=== PATIENT | male | born 1950 | race Caucasian/White ===

== ENCOUNTER 2024-05-08 03:46 | Inpatient (IN) | payer BC, MEDICAID ==
[~2024-05-08] VITALS: Ht 167.6 cm; Wt 104.3 kg
[2024-05-08 04:39] LABS: MEAN CORPUSCULAR HGB CONC 34 g/dL (32.5-36.3)
[2024-05-08 04:43] LABS: BASOPHILS # (AUTO) 0.1 K/UL (0.0-0.2); BASOPHILS % (AUTO) 0.6 % (0.0-2.0); EOSINOPHILS % (AUTO) 0.3 % (0.0-7.0); HEMATOCRIT 41.4 % (36.7-47.1); HEMOGLOBIN 14.2 g/dL (12.5-16.3); LYMPHOCYTES # (AUTO) 1.3 K/uL (0.8-4.8); MEAN CORPUSCULAR HEMOGLOBIN 31.7 uug (23.8-33.4); MEAN CORPUSCULAR VOLUME 92.6 fL (73.0-96.2); MONOCYTES # (AUTO) 0.9 K/uL (0.1-1.30); MONOCYTES % (AUTO) 8.1 % (0.0-11.0); NEUTROPHILS # (AUTO) 8.7 K/uL (1.8-8.9); PLATELET COUNT (AUTO) 213 K/uL (152-348); RED BLOOD CELL COUNT(AUTO) 4.47 MIL/uL (4.06-5.63); RED CELL DISTRIBUTION WIDTH 14.5 % (12.1-16.2)
[2024-05-08 04:45] LABS: DIFFERENTIAL COMMENT 1
[2024-05-08 04:49] LABS: CARBON DIOXIDE 25 mmol/L (21-32); CHLORIDE 108 mmol/L (98-107); CREATININE 0.8 mg/dL (0.6-1.3); GLUCOSE 118 mg/dL (74-106); POTASSIUM 3.8 mmol/L (3.5-5.1); SODIUM SERUM 140 mmol/L (136-145); UREA NITROGEN, BLOOD 18 mg/dL (7-18)
[2024-05-08] MEDS ORDERED: RASA1TAB4 PO (04:53)
[2024-05-08] MEDS ORDERED: OLME20TA13 PO (04:53)
[2024-05-08] MEDS ORDERED: RISP2TAB85 PO (04:53)
[2024-05-08] MEDS ORDERED: RISP1TAB97 PO (04:53)
[2024-05-08] MEDS ORDERED: MONT10TA22 PO (04:53)
[2024-05-08] MEDS ORDERED: AMLO-212 PO (04:53)
[2024-05-08] MEDS ORDERED: LEVO50TA PO (04:53)
[2024-05-08] MEDS ORDERED: GABA600T12 PO (04:53)
[2024-05-08] MEDS ORDERED: SIMV-49 PO (04:53)
[2024-05-08] MEDS ORDERED: PRAM1TAB3 PO (04:53)
[2024-05-08] MEDS ORDERED: OMEP40CA21 PO (04:53)
[2024-05-08] MEDS ORDERED: DULO60CA45 PO (04:53)
[2024-05-08] MEDS ORDERED: metoprolol PO (04:53)
[2024-05-08 05:05] LABS: ALANINE AMINOTRANSFERASE 19 U/L (16-63); ALBUMIN 3.5 g/dL (3.4-5.0); ALKALINE PHOSPHATASE 102 U/L (50-136); ASPARTATE AMINOTRANSFERASE 15 U/L (15-37); BILIRUBIN,DIRECT 0.2 mg/dL (0.0-0.2); BILIRUBIN,TOTAL 0.6 mg/dL (0.2-1.0); NT-PRO BNP 252 pg/mL (0-125); TOTAL PROTEIN, SERUM 6.5 g/dL (6.4-8.2)
[2024-05-08] MEDS ORDERED: IV NORMAL SALINE 250 ML IV ONE ×2 (05:45→05:47)
[2024-05-08] MEDS: IV NORMAL SALINE 500 ML BAG IV ONE (05:45)
[2024-05-08] MEDS ORDERED: SWABABLE VALVE TRANSFER SET EA MC ONE (05:46)
[2024-05-08] MEDS ORDERED: IOHEXOL 350 100 ML INFUS..BTL ONE (05:46)
[2024-05-08] MEDS ORDERED: CEFTRIAXONE /D5W 50ML IVPB **ER PYXIS IV ONE (08:01)
[2024-05-08] MEDS ORDERED: AZITHROMYCIN 500MG/ D5W 250ML IVPB **ER PYXIS ONLY IV ONE (08:01)
[2024-05-08] MEDS: CEFTRIAXONE 1 G in IV DEXTROSE 5% 50 ML IV ONE (08:09)
[2024-05-08] MEDS ORDERED: CHOLECALCIFEROL 1,000 UNIT TABLET ONE (08:11)
[2024-05-08] MEDS: CHOLECALCIFEROL 1,000 UNIT TABLET PO SCH (08:12)
[2024-05-08] MEDS: AZITHROMYCIN IV 500 MG in IV DEXTROSE 5% 250 ML IV ONE (08:21)
[2024-05-08 10:10] LABS: *BILIRUBIN,URIN NEGATIVE (NEGATIVE); *BLOOD, URINE NEGATIVE (NEGATIVE); *CLARITY,URINE CLEAR (CLEAR); *COLOR,URINE YELLOW (YELLOW); *KETONES,URINE NEGATIVE (NEGATIVE); *PROTEIN,URINE NEGATIVE (NEGATIVE); LEUKOCYTE ESTERASE ,URINE NEGATIVE (NEGATIVE); NITRITE, URINE NEGATIVE (NEGATIVE); PH,URINE 5.5 (5.0-8.0); UGLUCOSE 1+ (NEGATIVE)
[2024-05-08 10:11] LABS: BACTERIA,URINE FEW /HPF (NONE SEEN); WBC,URINE 0-3 /HPF (0-3)
[2024-05-08] MEDS ORDERED: METO-356 PO (15:28)
[2024-05-08 15:43] VITALS: BP 117/61; TEMP 97.4; O2SAT 96
[2024-05-08 16:30] VITALS: O2SAT 96
[2024-05-08] MEDS ORDERED: ACETAMINOPHEN 325 MG TABLET PO PRN (16:30)
[2024-05-08] MEDS ORDERED: AZITHROMYCIN IV 500 MG in IV DEXTROSE 5% 250 ML IV SCH (17:30)
[2024-05-08] MEDS ORDERED: ALBUTEROL SULFATE 2.5 MG/ 0.5 ML NEBU NEB PRN (17:30)
[2024-05-08] MEDS ORDERED: HYDROCODONE/APAP 5-325MG TABLET PO PRN (17:30)
[2024-05-08] MEDS ORDERED: IPRATROPIUM BROMIDE 0.5 MG/2.5 ML NEBU NEB PRN (17:45)
[2024-05-08] MEDS: CEFTRIAXONE 1 G in IV DEXTROSE 5% 50 ML IV SCH (17:58)
[2024-05-08] MEDS: PRAMIPEXOLE 1 MG TABLET PO SCH (17:58)
[2024-05-08] MEDS: SIMVASTATIN 40 MG TABLET PO SCH (20:10)
[2024-05-08] MEDS: risperiDONE 2 MG TABLET PO SCH (20:10)
[2024-05-08] MEDS: DOCUSATE SODIUM 100 MG CAPSULE PO SCH (20:10)
[2024-05-08] MEDS: REMEDY ESSENTIAL ZINC PASTE 113 GM TOP SCH (20:11)
[2024-05-08 21:00] VITALS: BP 128/67; TEMP 98.4; O2SAT 96
[2024-05-09] VITALS (7 sets, daily range): BP systolic 104–137; BP diastolic 48–72; TEMP 97.5–98.4; O2SAT 94–100
[2024-05-09 06:12] LABS: BASOPHILS # (AUTO) 0.1 K/UL (0.0-0.2); BASOPHILS % (AUTO) 0.9 % (0.0-2.0); EOSINOPHILS # (AUTO) 0.1 K/uL (0.0-0.7); EOSINOPHILS % (AUTO) 1.1 % (0.0-7.0); HEMATOCRIT 41.7 % (36.7-47.1); HEMOGLOBIN 14.2 g/dL (12.5-16.3); LYMPHOCYTES # (AUTO) 1.6 K/uL (0.8-4.8); LYMPHOCYTES % (AUTO) 20.7 % (20.5-51.5); MEAN CORPUSCULAR HEMOGLOBIN 31.8 uug (23.8-33.4); MEAN CORPUSCULAR HGB CONC 34 g/dL (32.5-36.3); MEAN CORPUSCULAR VOLUME 93.5 fL (73.0-96.2); MONOCYTES # (AUTO) 0.6 K/uL (0.1-1.30); MONOCYTES % (AUTO) 7.7 % (0.0-11.0); NEUTROPHILS # (AUTO) 5.3 K/uL (1.8-8.9); NEUTROPHILS % (AUTO) 69.6 % (38.5-71.5); PLATELET COUNT (AUTO) 180 K/uL (152-348); RED BLOOD CELL COUNT(AUTO) 4.46 MIL/uL (4.06-5.63); RED CELL DISTRIBUTION WIDTH 14.5 % (12.1-16.2); WHITE BLOOD COUNT (AUTO) 7.6 K/uL (3.6-10.2)
[2024-05-09 06:35] LABS: DIFFERENTIAL COMMENT 1
[2024-05-09 06:36] LABS: ALANINE AMINOTRANSFERASE 18 U/L (16-63); ALBUMIN 3.2 g/dL (3.4-5.0); ALKALINE PHOSPHATASE 89 U/L (50-136); ASPARTATE AMINOTRANSFERASE 20 U/L (15-37); BILIRUBIN,TOTAL 0.9 mg/dL (0.2-1.0); CALCIUM 8.7 mg/dL (8.5-10.1); CARBON DIOXIDE 28 mmol/L (21-32); CHLORIDE 110 mmol/L (98-107); CREATININE 0.7 mg/dL (0.6-1.3); GLUCOSE 104 mg/dL (74-106); LIPASE 24 U/L (16-77); MAGNESIUM 2.4 mg/dL (1.8-2.4); PHOSPHOROUS 4.5 mg/dL (2.5-4.9); POTASSIUM 4.2 mmol/L (3.5-5.1); SODIUM SERUM 143 mmol/L (136-145); TOTAL PROTEIN, SERUM 6.1 g/dL (6.4-8.2); UREA NITROGEN, BLOOD 11 mg/dL (7-18)
[2024-05-09] MEDS: PANTOPRAZOLE SODIUM 40 MG TABLET.DR PO SCH (06:47)
[2024-05-09] MEDS: LEVOTHYROXINE SODIUM 50 MCG TABLET PO SCH (06:47)
[2024-05-09 07:25] LABS: CHOLESTEROL 123 mg/dL (<200); HDL CHOLESTEROL 45 mg/dL (40-60); TRIGLYCERIDES 109 MG/DL (30-150)
[2024-05-09] MEDS: risperiDONE 1 MG TABLET PO SCH (08:33)
[2024-05-09] MEDS: DULOXETINE 60 MG CAPSULE.DR PO SCH (08:33)
[2024-05-09] MEDS: MONTELUKAST SODIUM 10 MG TABLET PO SCH (08:33)
[2024-05-09] MEDS: METOPROLOL SUCCINATE XL 25 MG TAB.SR.24H PO SCH (08:38)
[2024-05-09] MEDS ORDERED: RASAGILINE MESYLATE 1 MG PO SCH (09:00)
[2024-05-09] MEDS: RASAGILINE 1 MG PO SCH (17:03)
[2024-05-09] MEDS: AZITHROMYCIN 250 MG TABLET PO SCH (20:24)
[2024-05-10 04:58] VITALS: BP 97/65; TEMP 98.5; O2SAT 98
[2024-05-10 06:08] VITALS: O2SAT 96
[2024-05-10 16:02] VITALS: BP 113/55; TEMP 98; O2SAT 95
[2024-05-10] MEDS: CLOTRIMAZOLE 1% CREAM 30 GM TUBE TOP SCH (16:43)
[2024-05-10] MEDS: MAGNESIUM HYDROXIDE 30 ML LIQUID UDC PO PRN (18:28)
[2024-05-10 20:00] VITALS: BP 117/54; TEMP 98.6; O2SAT 95
[2024-05-10] MEDS: methylPREDNISolone SOD SUCC 40 MG/ML VIAL IV SCH (21:55)
[2024-05-11] VITALS (10 sets, daily range): BP systolic 102–108; BP diastolic 63–76; TEMP 97.6–98.4; O2SAT 92–99
[2024-05-11 06:16] LABS: ABG BASE EXCESS 0.9 mmol/L (-2.0-3.0); ABG HCO3 25.4 mmol/L (21.0-28.0); ABG PCO2 39.8 mmHg (35.0-48.0); ABG PH 7.422 (7.350-7.450); ABG PO2 68.2 mmHg (83.0-108.0); ABG SITE RIGHT RADIAL; ABG TOTAL HEMOGLOBIN 14.7 G/dL (13.5-17.5); COHb 0.8 % (0.5-1.5); MetHb 0.1 % (0.0-1.5); O2Hb 92.9 % (94.0-98.0)
[2024-05-11 06:47] LABS: BASOPHILS % (AUTO) 0.1 % (0.0-2.0); EOSINOPHILS % (AUTO) 0.1 % (0.0-7.0); HEMATOCRIT 40.4 % (36.7-47.1); HEMOGLOBIN 13.9 g/dL (12.5-16.3); LYMPHOCYTES # (AUTO) 0.8 K/uL (0.8-4.8); LYMPHOCYTES % (AUTO) 11.4 % (20.5-51.5); MEAN CORPUSCULAR HEMOGLOBIN 32.1 uug (23.8-33.4); MEAN CORPUSCULAR HGB CONC 34 g/dL (32.5-36.3); MEAN CORPUSCULAR VOLUME 93.2 fL (73.0-96.2); MONOCYTES # (AUTO) 0.1 K/uL (0.1-1.30); NEUTROPHILS % (AUTO) 86.4 % (38.5-71.5); PLATELET COUNT (AUTO) 199 K/uL (152-348); RED BLOOD CELL COUNT(AUTO) 4.34 MIL/uL (4.06-5.63); WHITE BLOOD COUNT (AUTO) 6.9 K/uL (3.6-10.2)
[2024-05-11 07:14] LABS: DIFFERENTIAL COMMENT 1
[2024-05-11 07:19] LABS: CALCIUM 8.8 mg/dL (8.5-10.1); CARBON DIOXIDE 27 mmol/L (21-32); CHLORIDE 106 mmol/L (98-107); CREATININE 0.7 mg/dL (0.6-1.3); GLUCOSE 152 mg/dL (74-106); MAGNESIUM 1.9 mg/dL (1.8-2.4); PHOSPHOROUS 4.5 mg/dL (2.5-4.9); POTASSIUM 4.7 mmol/L (3.5-5.1); SODIUM SERUM 139 mmol/L (136-145); UREA NITROGEN, BLOOD 17 mg/dL (7-18)
[2024-05-11] MEDS: ALBUTEROL SULFATE 2.5 MG/3 ML NEBU NEB SCH (13:35)
[2024-05-11] MEDS: IPRATROPIUM BROMIDE 0.5 MG/2.5 ML NEBU NEB SCH (13:35)
[2024-05-11] MEDS: CEFTRIAXONE 2 G in IV DEXTROSE 5% 100 ML IV SCH (17:15)
[2024-05-12] VITALS (10 sets, daily range): BP systolic 109–122; BP diastolic 53–65; TEMP 97.9–98.3; O2SAT 93–98
[2024-05-13] VITALS (10 sets, daily range): BP systolic 113–128; BP diastolic 63–73; TEMP 97.5–98.1; O2SAT 94–97
[2024-05-13] MEDS: methylPREDNISolone SOD SUCC 40 MG/ML VIAL IV SCH (11:34)
[2024-05-14 06:00] VITALS: BP 143/87; TEMP 97.6; O2SAT 94
[2024-05-14 12:01] VITALS: BP 116/60; TEMP 97.7; O2SAT 94
[2024-05-14 16:30] VITALS: BP 117/66; TEMP 97.9; O2SAT 94
== END 2024-05-14 17:20 | DRG 193 ==
LOC: ER 03:55 → MEDSURG3 14:24 → TELE3 17:50 → MEDSURG3 05-09 18:00
PROVIDERS: ADMIT Internal Medicine; ATTEND Internal Medicine
DX: J15.9 Unspecified bacterial pneumonia (principal); J96.01 Acute respiratory failure with hypoxia; J98.11 Atelectasis; D68.59 Other primary thrombophilia; J45.901 Unspecified asthma with (acute) exacerbation; K42.9 Umbilical hernia without obstruction or gangrene; G20.A1 Parkinson's disease without dyskinesia, without mention of fluctuations; F06.70 Mild neurocognitive disorder due to known physiological condition without behavioral disturbance; F32.A Depression, unspecified; E66.01 Morbid (severe) obesity due to excess calories; K21.9 Gastro-esophageal reflux disease without esophagitis; R13.10 Dysphagia, unspecified; M51.16 Intervertebral disc disorders with radiculopathy, lumbar region; G89.29 Other chronic pain; E78.5 Hyperlipidemia, unspecified; E03.9 Hypothyroidism, unspecified; Z68.37 Body mass index [BMI] 37.0-37.9, adult; S50.311A Abrasion of right elbow, initial encounter; W19.XXXA Unspecified fall, initial encounter; Y92.89 Other specified places as the place of occurrence of the external cause; N40.0 Benign prostatic hyperplasia without lower urinary tract symptoms; I25.10 Atherosclerotic heart disease of native coronary artery without angina pectoris; I10 Essential (primary) hypertension; Z74.09 Other reduced mobility; K40.20 Bilateral inguinal hernia, without obstruction or gangrene, not specified as recurrent; M15.9 Polyosteoarthritis, unspecified; Z79.890 Hormone replacement therapy; Z79.899 Other long term (current) drug therapy
CPT/HCPCS: 36415; 36600; 70450; 71045; 71275; 83690; 83735; 84100; 84153; 84443; 84484; 85025; 93307; 94640; 94664; A4606; A4663; A6209; A6213; G0378; J0456; J0696; J2919; J3590; J7040; Q0144; Q9967